=== PATIENT | male | born 1970 | race Caucasian/White ===

== ENCOUNTER 2021-06-15 18:23 | Emergency (ER) | payer OTHER, MEDICAID, SELFPAY ==
[2021-06-15 18:30] VITALS: BP 151/96; PULSE 114; RESP 22; TEMP 36.2; O2SAT 97; BMI 36.5
--- NOTE | 2021-06-15 21:45 | ED_ITS ---
HPI - Allergic Reaction General Chief complaint: Allergic Reaction Stated complaint: Bit or Stung/Rt Facial Swelling/Itching Time Seen by Provider: 06/15/21 21:41 Source: patient Mode of arrival: Ambulatory History of Present Illness HPI narrative: Patient is a 50-year-old male who is here for evaluation of what was initially thought of as an allergic reaction. He states that he started noticing some redness on the left side of his lip but since spread to the right side also above his right eye. He initially thought that he had been stung or bit by an insect but he cannot test her that confirmed this. He has had no new known expo sures. No respiratory distress. No problems swallowing. Has not tried anything for symptoms prior to arrival. The initial issue with the left side of his lip actually started a couple days ago. He stated that there was a ?ingrown hair? the in the area that he hold out. He reports no rash your also his body. No nausea vomiting. No fevers. No oral lesions. Related Data Previous Rx's Medication Instructions Recorded cephalexin 500 mg capsule 500 mg PO QID 7 Days #28 cap 06/15/21 Allergies Allergy/AdvReac Type Severity Reaction Status Date / Time Penicillins Allergy Verified 06/15/21 18:30 Review of Systems ENT Ears, Nose, Mouth, and Throat: Reports system reviewed and no additional complaints, except as documented and Reports as per HPI Respiratory Respiratory: Reports as per HPI and Reports system reviewed and no additional complaints, except as documented Gastrointestinal Gastrointestinal: Reports as per HPI and Reports system reviewed and no additional complaints, except as documented Integumentary/Breasts Skin/Breast: Reports system reviewed and no additional complaints, except as documented and Reports as per HPI Hematologic/Lymphatic On Anticoagulants: No Allergic/Immunologic Allergic/Immunologic: Reports system reviewed and no additional complaints, except as documented and Reports as per HPI Patient History Medical History Patient denies medical problems Social History Smoking Status: Current every day smoker Smoking Status: Current every day smoker tobacco type: cigarettes Substance Use Type: marijuana, heroin and methamphetamine Exam Initial Vital Signs Initial Vital Signs: Vital Signs Temperature 97.2 F L 06/15/21 18:30 Pulse Rate 114 H 06/15/21 18:30 Respiratory Rate 22 06/15/21 18:30 Blood Pressure 151/96 H 06/15/21 18:30 Pulse Oximetry 97 06/15/21 18:30 HENOR Head: normal to inspection and normocephalic Nose: external nose normal Face and sinus: erythema and edema Mouth: tongue normal, oropharynx normal, moist mucous membranes, No drooling and lip abnormal Throat: posterior oropharynx normal Resp Effort & Inspection: normal respiratory effort Cardio Rate: tachycardic Skin Other: Patient has a down time a signs redness and some ulceration appearing lesion to the lower aspect of the left side of his lip. There is also a small punctate pustule just lateral to this. He also has other punctate lesions to the right side of his lower lip. He has swelling to the right side of his lower lip. He also has a punctate pustule above his right eye was swelling above his right eye. No surrounding erythema. Neuro General: patient alert, patient awake and moves all extremities Extrem General: normal to inspection and capillary refill normal Course Orders Ordered: Discontinued Medications Cephalexin HCl (Cephalexin 250 Mg Capsule) 500 mg PO NOW ONE Stop: 06/15/21 23:24 Last Admin: 06/15/21 23:29 Dose: 500 mg Documented by: REJI Diphenhydramine HCl (Diphenhydramine 50 Mg/Ml Vial) 25 mg IV NOW ONE Stop: 06/15/21 21:42 Last Admin: 06/15/21 21:55 Dose: 25 mg Documented by: LAURA Methylprednisolone (Methylprednisolone 125 Mg/2 Ml Vial) 125 mg IV NOW ONE Stop: 06/15/21 21:42 Last Admin: 06/15/21 22:00 Dose: 125 mg Documented by: LAURA Vital Signs Vital signs: Vital Signs - 8 hr 06/15/21 22:05 06/15/21 22:10 06/15/21 22:30 Pulse Rate 104 H 106 H 105 H Respiratory Rate Blood Pressure 143/103 H 137/91 H 144/83 H Pulse Oximetry 94 95 96 06/15/21 23:00 06/15/21 23:32 Pulse Rate 100 H 95 H Respiratory Rate 22 Blood Pressure 147/86 H 159/86 H Pulse Oximetry 96 96 MDM - Allergic Reaction MDM Narrative Medical decision making narrative: Patient's presenting symptoms today are more concerning for an infection/inflammation rather than an allergic reaction. He has no intra oral lesions. His right eye is unremarkable except for the swelling and the redness above the eye. I have low suspicion for orbital cellulitis. There is some characteristics of the skin findings that would make me somewhat concerned about herpes however there definite vesicles seen. Patient states that there have been no vesicles to his knowledge. There is a very small superficial pustule above his right eye and 1 lateral to the main area of crusting and ulceration on the left side of his lower lip. There is no drainage that would be amenable to culturing today. He reports improvement of his symptoms after Benadryl and steroids. I feel patient would benefit from antibiotics given his presentation. Also considered other etiologies such is herpangina however once again I have a higher suspicion for a bacterial infection rather than a viral infection. Patient was given a dose of antibiotics here in the emergency department and a prescription was sent to the pharmacy of his choice. He was given strict return precautions and follow-up instructions. He expressed understanding and agreement. Discharge Plan Departure Patient Disposition: Home Clinical Impression: Cellulitis Instructions: DI for Cellulitis -- Adult Activity Restrictions/Additional Instructions: Take the antibiotics as directed. You can also use [id number] Benadryl as needed. If your symptoms worsen please return to the emergency department for further evaluation. Prescriptions: New cephalexin 500 mg capsule 500 mg PO QID 7 Days Qty: 28 0RF Referrals: Miscellaneous,Doctor, [Primary Care Provider] -
[2021-06-15] MEDS: diphenhydrAMINE 50 MG/ML VIAL 25 MG IV (21:55)
[2021-06-15] MEDS: methylPREDNISolone 125 MG/2 ML VIAL IV (22:00)
[2021-06-15 22:05] VITALS: BP 143/103; PULSE 104; O2SAT 94
[2021-06-15 22:10] VITALS: BP 137/91; PULSE 106; O2SAT 95
[2021-06-15 22:30] VITALS: BP 144/83; PULSE 105; O2SAT 96
[2021-06-15 23:00] VITALS: BP 147/86; PULSE 100; O2SAT 96
[2021-06-15] MEDS: cephALEXin 250 MG CAPSULE 500 MG PO (23:29)
[2021-06-15 23:32] VITALS: BP 159/86; PULSE 95; RESP 22; O2SAT 96
== END 2021-06-15 23:33 | disposition home or self-care (01) ==
PROVIDERS: Emergency Provider Emergency Medicine; Family Provider Family Medicine
DX: L03.211 Cellulitis of face (principal); F17.210 Nicotine dependence, cigarettes, uncomplicated; Z88.0 Allergy status to penicillin
CPT/HCPCS: 96374; 96375; 99284; J1200; J2930

== ENCOUNTER 2022-05-29 15:28 | Emergency (ER) | payer OTHER, MEDICAID, SELFPAY ==
[2022-05-29 15:30] VITALS: BP 153/96; PULSE 121; RESP 16; TEMP 36.4; O2SAT 97; BMI 36.5
--- NOTE | 2022-05-29 15:44 | ED.WOUNDLAC ---
HPI - Wound/Laceration General Chief Complaint: Wound/Laceration Stated Complaint: Fit for skilled nursing Time Seen by Provider: 05/29/22 15:40 Source: police Mode of arrival: Ambulatory History of Present Illness HPI narrative: Patient is a 51-year-old male currently brought in by police needing a fit for skilled nursing. He reports that he is a wound on his chin here for couple of days he is a wound on arm and then a wound on his right index finger. He denies any sort of injection. He is previously had wound on his chin which he said he received antibiotics for. No fever chills no significant drainage or erythema. Denies any other symptoms. He also denies injecting any drugs. Related Data Previous Rx's Medication Instructions Recorded mupirocin 2 % topical ointment 1 applic topical BID #15 grams 05/29/22 Allergies Allergy/AdvReac Type Severity Reaction Status Date / Time Penicillins Allergy Verified 05/29/22 15:33 Review of Systems Review of Systems ROS Unobtainable: All systems reviewed & are unremarkable except as noted in HPI and below Patient History Medical History Patient denies medical problems Social History Smoking Status: Current every day smoker Smoking Status: Current every day smoker tobacco type: cigarettes Substance Use Type: marijuana, heroin, opiates and methamphetamine Exam Initial Vital Signs Initial Vital Signs: Vital Signs Temperature 97.6 F 05/29/22 15:30 Pulse Rate 121 H 05/29/22 15:30 Respiratory Rate 16 05/29/22 15:30 Blood Pressure 153/96 H 05/29/22 15:30 Pulse Oximetry 97 05/29/22 15:30 Oxygen Delivery Method Room Air 05/29/22 15:30 GENERAL: Sleeping arousable 51 year CARDIOVASCULAR: peripheral pulses in tact, cap refill <2 sec RESPIRATORY: No respiratory distress, speaks in full sentences without difficulty [ABDOMEN: Soft, nontender, no guarding or rebound] EXTREMITIES: Normal range of motion, no clubbing or edema. Neurovascularly intact NEUROLOGICAL: Cranial nerves II through XII grossly intact. Normal gait and speech. SKIN: Dried crusted over area just on the chin. Very small erythematous area on right forearm no fluctuation no drainage 1cm,, right index finger blister 0.25 cm Course Vital Signs Vital signs: Vital Signs - 8 hr 05/29/22 15:30 Temperature 97.6 F Pulse Rate 121 H Respiratory Rate 16 Blood Pressure 153/96 H Pulse Oximetry 97 Oxygen Delivery Method Room Air MDM - Wound/Laceration MDM Narrative Medical decision making narrative: Patient 51-year-old male who presents today for fit for skilled nursing. There is no obvious signs of sepsis or severe cellulitis. Chin appears to be crusted over and possible impetigo. Right forearm is not a drainable abscess and neither is his finger. Type he could apply topical antibiotic ointment as needed no need for oral antibiotics. Patient is medically cleared Discharge Plan Departure Patient Disposition: Home Clinical Impression: Wounds, multiple Instructions: DI for Wound Infection Activity Restrictions/Additional Instructions: Fit for skilled nursing At this time apply antibiotic ointment on it twice a day to affected areas in till clear Follow-up with primary care provider Return to emergency department if there is any more redness swelling drainage Prescriptions: New mupirocin 2 % ointment 1 applic topical BID Qty: 15 0RF Referrals: Miscellaneous,Doctor, [Primary Care Provider] - Stand Alone Forms: Patient Portal/API
== END 2022-05-29 15:53 | disposition home or self-care (01) ==
PROVIDERS: Emergency Provider Emergency Medicine; Family Provider Family Medicine
DX: S41.109A Unspecified open wound of unspecified upper arm, initial encounter (principal); S61.201A Unspecified open wound of left index finger without damage to nail, initial encounter
CPT/HCPCS: 99281